=== PATIENT | male | born 1945 | race Caucasian/White ===

== ENCOUNTER → 2021-03-29 09:08 | Outpatient (BNVA) | payer MEDICARE, OTHER, SELFPAY | PROVIDERS: Family Provider Internal Medicine; PCP Internal Medicine; Visit Provider Nurse Practitioner Family | DX: R33.9 Retention of urine, unspecified (principal); N10 Acute pyelonephritis | CPT/HCPCS: 81000 ==

== ENCOUNTER → 2023-04-17 08:28 | Outpatient (BNVA) | payer MEDICARE, OTHER, SELFPAY | PROVIDERS: Family Provider Internal Medicine; PCP Internal Medicine; Visit Provider Nurse Practitioner Family | DX: L57.0 Actinic keratosis (principal); L21.8 Other seborrheic dermatitis; L85.3 Xerosis cutis; Z85.828 Personal history of other malignant neoplasm of skin; Z87.891 Personal history of nicotine dependence; Z85.820 Personal history of malignant melanoma of skin | CPT/HCPCS: 17000; 17003; 99213 ==

== ENCOUNTER 2023-05-24 04:11 | Emergency (ER) | payer MEDICARE, OTHER, SELFPAY ==
[2023-05-24] VITALS (15 sets, daily range): BP systolic 134–225; BP diastolic 97–143; PULSE 93–108; RESP 18–27; TEMP 36.6; O2SAT 87–97; BMI 35.5
--- NOTE | 2023-05-24 04:17 | XRR_ITS ---
PROCEDURE INFORMATION: Exam: XR Chest Exam date and time: 05/24/2023 4:36 AM Age: 78 years old Clinical indication: Other: CVA TECHNIQUE: Imaging protocol: Radiologic exam of the chest. Views: 1 view. COMPARISON: CT angio headneck* [id number] 05/24/2023 4:30 AM FINDINGS: Lungs: There is no consolidation. Nonspecific left infrahilar density. Pleural spaces: No pleural effusion or pneumothorax. Heart/Mediastinum: The heart and mediastinum are normal in size. There is a widened right paratracheal stripe. Bones/joints: Unremarkable. XR/XR chest 1V portable [id number] IMPRESSION: 1. Widened right paratracheal stripe as may be seen in paratracheal lymphadenopathy or mass CT angiogram of the chest with contrast may be helpful for further characterization if clinically indicated. 2. Left infrahilar nonspecific opacity that may represent atelectasis or pneumonia. Underlying neoplasm may present a similar picture.
--- NOTE | 2023-05-24 04:17 | CTR_ITS ---
PROCEDURE INFORMATION: Exam: CTA Head With Contrast, Arteriography Exam date and time: 05/24/2023 4:30 AM Age: 78 years old Clinical indication: Stroke-like symptoms; Lt upper extremity and lt lower extremity weakness; Additional info: CVA TECHNIQUE: Imaging protocol: Computed tomographic angiography of the head with contrast. Exam focused on the arteries. 3D rendering (Not supervised by radiologist): MIP and/or 3D reconstructed images were created by the technologist. Radiation optimization: All CT scans at this facility use at least one of these dose optimization techniques: automated exposure control; mA and/or kV adjustment per patient size (includes targeted exams where dose is matched to clinical indication); or iterative reconstruction. Contrast material: OMNI 350; Contrast volume: 100 ml; Contrast route: INTRAVENOUS (IV); REPORTING DATA: Count of CT and Cardiac NM exams in prior 12 months: This patient has received 0 known CTs and 0 known cardiac nuclear medicine studies in the 12 months prior to the current study. COMPARISON: CT head thrombolytic [id number] 05/24/2023 4:25 AM RADIATION DOSE METRICS: Total DLP (mGy-cm): 586.27 FINDINGS: ANTERIOR CIRCULATION: Right internal carotid artery: Intracranial segment is patent with no significant stenosis. No aneurysm. Right middle cerebral artery: No occlusion or significant stenosis. No aneurysm. Right anterior cerebral artery: No occlusion or significant stenosis. No aneurysm. Left internal carotid artery: Intracranial segment is patent with no significant stenosis. No aneurysm. Left middle cerebral artery: No occlusion or significant stenosis. No aneurysm. Left anterior cerebral artery: No occlusion or significant stenosis. No aneurysm. POSTERIOR CIRCULATION: Right vertebral artery: No occlusion or significant stenosis. No aneurysm. Left vertebral artery: No occlusion or significant stenosis. No aneurysm. Basilar artery: No occlusion or significant stenosis. No aneurysm. Right posterior cerebral artery: No occlusion or significant stenosis. No aneurysm. Left posterior cerebral artery: No occlusion or significant stenosis. No aneurysm. Brain: Ill-defined area of enhancement in the right frontoparietal convexity. Cerebral ventricles: No ventriculomegaly. Bones/joints: Unremarkable. No acute fracture. Soft tissues: Unremarkable. PROCEDURE INFORMATION: Exam: CTA Neck With Contrast Exam date and time: 05/24/2023 4:30 AM Age: 78 years old Clinical indication: Stroke-like symptoms; Lt upper extremity and lt lower extremity weakness; Additional info: CVA TECHNIQUE: Imaging protocol: Computed tomographic angiography of the neck with contrast. 3D rendering (Not supervised by radiologist): MIP and/or 3D reconstructed images were created by the technologist. Radiation optimization: All CT scans at this facility use at least one of these dose optimization techniques: automated exposure control; mA and/or kV adjustment per patient size (includes targeted exams where dose is matched to clinical indication); or iterative reconstruction. Contrast material: OMNI 350; Contrast volume: 100 ml; Contrast route: INTRAVENOUS (IV); REPORTING DATA: Count of CT and Cardiac NM exams in prior 12 months: This patient has received 0 known CTs and 0 known cardiac nuclear medicine studies in the 12 months prior to the current study. COMPARISON: CT head thrombolytic [id number] 05/24/2023 4:25 AM RADIATION DOSE METRICS: Total DLP (mGy-cm): 586.27 FINDINGS: Right common carotid artery: No significant stenosis. No dissection or occlusion. Right internal carotid artery: No significant stenosis of the extracranial segment. No dissection or occlusion. Right external carotid artery: No occlusion or significant stenosis of the origin. Left common carotid artery: No significant stenosis. No dissection or occlusion. Left internal carotid artery: No significant stenosis of the extracranial segment. No dissection or occlusion. Left external carotid artery: No occlusion or significant stenosis of the origin. Right vertebral artery: No significant stenosis. No dissection or occlusion. Left vertebral artery: No significant stenosis. No dissection or occlusion. Thyroid: 2.2 x 2.4 cm hypodense lesion in the right lobe of the thyroid. Lymph nodes: Right hilar and paratracheal mediastinal lymphadenopathy that may be infectious or neoplastic. Soft tissues: No significant soft tissue swelling. Bones/joints: No acute fracture. CT/CT angio headneck* [id number] IMPRESSION: 1. No large vessel stenosis or occlusion. 2. Ill-defined area of enhancement in the right frontoparietal convexity, possibly infiltrative neoplasm. AVM may be considered less likely. IMPRESSION: 1. Normal right and left extracranial internal carotid arteries by NASCET criteria. 2. Patent bilateral vertebral arteries. 3. Right hilar and paratracheal mediastinal lymphadenopathy that may be infectious or neoplastic. Consider correlation with CT scan of the chest, abdomen pelvis if clinically indicated. 4. 2.2 x 2.4 cm hypodense lesion in the right lobe of the thyroid. Dedicated thyroid ultrasound is recommended. THIS REPORT CONTAINS FINDINGS THAT MAY BE CRITICAL TO PATIENT CARE. The findings were verbally communicated via telephone conference with AMILCAR ANGULO at 5:38 AM CDT on 05/24/2023. The findings were acknowledged and understood. REFERENCES: NASCET CRITERIA. The degree of stenosis in the cervical segment of the internal carotid artery is based on NASCET criteria. Normal is no stenosis. Mild is less than 50% stenosis. Moderate is 50-69% stenosis. Severe is 70% to 99% stenosis. Total occlusion is no detectable patent lumen.
--- NOTE | 2023-05-24 04:17 | ECG_ITS ---
[facility] Test Date: 2023-05-24 Pat Name: Navid Camacho Department: Room: Gender: Male Senior Technical Support Engineer: : 1945 Requested By: Ange Pacheco Order Number: [id number] Reading MD: Measurements Intervals Henry Rate: 103 P: 62 MT: 181 QRS: -44 QRSD: 107 T: 35 QT: 373 QTc: 491 Interpretive Statements SINUS TACHYCARDIA LEFT AXIS DEVIATION [QRS AXIS < -30] No previous ECG available for comparison [email or web address]
--- NOTE | 2023-05-24 04:17 | CTR_ITS ---
PROCEDURE INFORMATION: Exam: CT Head Without Contrast Exam date and time: 05/24/2023 4:25 AM Age: 78 years old Clinical indication: Stroke-like symptoms; Lt upper extremity and lt lower extremity weakness; Additional info: Symptoms of acute stroke TECHNIQUE: Imaging protocol: Computed tomography of the head without contrast. Radiation optimization: All CT scans at this facility use at least one of these dose optimization techniques: automated exposure control; mA and/or kV adjustment per patient size (includes targeted exams where dose is matched to clinical indication); or iterative reconstruction. Other technique: STROKE PROTOCOL was implemented. REPORTING DATA: Count of CT and Cardiac NM exams in prior 12 months: This patient has received 0 known CTs and 0 known cardiac nuclear medicine studies in the 12 months prior to the current study. COMPARISON: No relevant prior studies available. RADIATION DOSE METRICS: Total DLP (mGy-cm): 1217.69 FINDINGS: Brain: There are moderate confluent periventricular hypodensities consistent with chronic microischemic changes of white matter. Cerebral ventricles: There is no mass effect on the ventricular system and no midline shift. Paranasal sinuses: There are no air-fluid levels. Mastoid air cells: The visualized mastoid air cells are well aerated. Bones/joints: No acute fracture. Soft tissues: Unremarkable. Vasculature: There is a hypervascular lesion in the right frontoparietal convexity with a very prominent draining vein. There is adjacent cortical atrophy. There is evidence of prior and acute or subacute hemorrhage. Petechial hemorrhages are present in the poorly defined area of the frontal cortex and subcortical region measuring 3.9 x 2 x 3.6 cm (volume 14 mL). CT/CT head thrombolytic [id number] IMPRESSION: 1. 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 MRI may be helpful for further characterization. 2. The differential diagnosis includes an arteriovenous malformation. 3. Moderate cerebral small-vessel disease. 4. Age-related involutional changes of the brain. ASSESSMENT: ASPECTS ([place] Stroke Program Early CT Score) likely does not apply.
--- NOTE | 2023-05-24 04:18 | W.ED.NEUROSD ---
HPI - Neuro Symptoms/Deficit General: Chief Complaint: Neuro Symptoms/Deficit Stated Complaint: stroke symptoms Time Seen by Provider: 05/24/23 04:13 Source: patient Mode of arrival: ambulatory Limitations: no limitations History of Present Illness: 78-year-old male states he went to bed last night at 9 PM. He states he woke up with this morning at 3 AM and is having left-sided weakness. States he had some numbness in his left arm and left leg is having weakness on that side as well. 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 is having a difficult time lifting it he has no slurred speech denies any visual field deficits or blurred vision Associated symptoms: Reports headache(s); Deny chest pain, nausea or vomiting Review of Systems Const: Denies: fever(s) or chills Eyes: Denies: eye discomfort ENMT: Denies: throat pain or dental pain Card: Denies: chest pain Resp: Denies: dyspnea GI: Denies: abdominal pain, nausea, vomiting or diarrhea : Denies: dysuria Musc: Denies: neck pain or back pain Skin/Breast: Denies: rash Neuro: Reports: headache(s), numbness in extremities and weakness in extremities PFSH ED PFSH: Medical History History of malignant melanoma History of nonmelanoma skin cancer HTN (hypertension) Surgical History H/O eye surgery History of appendectomy History of colon surgery History of hip surgery Family History Father Cancer Sister Cancer Social History Smoking and tobacco status: never smoked Alcohol intake: former service: Yes NIH stroke score NIHSS: Level Of Consciousness - 1a: 0 Level Of Consciousness Questions - 1b: Both Correct Level Of Consciousness Commands - 1c: Both Correct Best Gaze - 2: Normal Visual Ramos - 3: No Visual Loss Facial Palsy - 4: Normal Motor Arm Right - 5: No Drift Motor Arm Left - 5: Drift Motor Leg Right - 6: No Drift Motor Leg Left - 6: Drift Limb Ataxia - 7: Absent Sensory - 8: Mild To Moderate Loss Best Language - 9: No Aphasia Dysarthia - 10: Normal Extinction And Inattention - 11: 0 Score: Total Score: 3 Physical Exam Const: COMMON NORMALS: no acute distress, patient oriented x3 and healthy appearing HENMT: COMMON NORMALS: normocephalic and atraumatic HEAD & SCALP: normocephalic and atraumatic Eye: COMMON NORMALS: conjunctivae normal CONJUNCTIVA: Yes conjunctivae normal Neck/C-Spine: COMMON NORMALS: full ROM and supple Chest: COMMONS NORMALS: normal inspection of the chest and normal palpation of entire chest wall Resp: COMMON NORMALS: normal respiratory effort, No retractions, No use of accessory muscles and clear to auscultation bilaterally AUSCULTATION: clear to auscultation bilaterally Cardio: COMMON NORMALS: regular rate, regular rhythm and No murmurs present (Cardio) RATE: regular rate RHYTHM: regular rhythm GI: COMMON NORMALS: Normal to inspection, nondistended, normoactive bowel sounds present, Soft to palpation, non-tender and no masses PALPATION: Yes Soft to palpation Extremity: COMMON NORMALS: normal to inspection and full ROM Neuro: COMMON NORMALS: patient oriented x3, moves all extremities and no focal motor deficits CRANIAL NERVES: Yes CN normal except as noted SPEECH: speech normal OTHER: Left-sided weakness Psych: COMMON NORMALS: mental status grossly normal, Normal thought process present and cooperative THOUGHT PROCESS: Normal thought process present Skin: COMMON NORMALS: no rashes or lesions noted and no wounds GENERAL SKIN EXAM: no rashes or lesions noted Course Vital Signs: Vital signs: Vital Signs Temperature 97.9 F 05/24/23 04:18 Pulse Rate 108 H 05/24/23 04:18 Respiratory Rate 22 H 05/24/23 04:18 Blood Pressure 225/143 05/24/23 04:24 Pulse Oximetry 97 05/24/23 04:18 Oxygen Delivery Me thod Room Air 05/24/23 04:18 MDM - Neuro Symptoms/Deficit Medical Decision Making Patient presents here with left-sided weakness he did have a seizure here roughly 30 minutes into his stay that resolved after Ativan and Keppra he was not very hypertensive his blood pressure now is 147/99 stroke alert was called patient was seen by the neurologist down here Dr. Villarreal. Me and the neurologist had reviewed the CT scan and it took a prolonged time for [facility] to read it over 50 minutes. Neurologist looking at the CT we do not see any the small hemorrhage on the CT patient was not a tPA candidate due to his time of onset so the decision was made to give aspirin. CT read did come back with a neoplasm with small area of intermittent hemorrhage is acute on chronic. Patient has been stable here and has not had another seizure I did speak to [facility] will transfer there for higher level of care of neurosurgery. Medical Records I reviewed the patient's medical records. Lab Data I reviewed the patient's lab results. 05/24/23 04:20 05/24/23 04:20 Radiology Impressions Chest X-Ray 05/24/23 04:17 IMPRESSION: 1. Widened right paratracheal stripe as may be seen in paratracheal lymphadenopathy or mass CT angiogram of the chest with contrast may be helpful for further characterization if clinically indicated. 2. Left infrahilar nonspecific opacity that may represent atelectasis or pneumonia. Underlying neoplasm may present a similar picture. Head CT 05/24/23 04:17 IMPRESSION: 1. 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 MRI may be helpful for further characterization. 2. The differential diagnosis includes an arteriovenous malformation. 3. Moderate cerebral small-vessel disease. 4. Age-related involutional changes of the brain. ASSESSMENT: ASPECTS ([place] Stroke Program Early CT Score) likely does not apply. ADDENDUM: 05/24/23 0541 THIS REPORT CONTAINS FINDINGS THAT MAY BE CRITICAL TO PATIENT CARE. The findings were verbally communicated via telephone conference with AMILCAR ANGULO at 5:37AM CDT on 05/24/2023. The findings were acknowledged and understood. ADDENDUM: 05/24/23 0550 Underlying areas of ischemia/subacute or chronic infarction may be present in the right frontoparietal convexity. Head/Neck CTA 05/24/23 04:17 IMPRESSION: 1. No large vessel stenosis or occlusion. 2. Ill-defined area of enhancement in the right frontoparietal convexity, possibly infiltrative neoplasm. AVM may be considered less likely. IMPRESSION: 1. Normal right and left extracranial internal carotid arteries by NASCET criteria. 2. Patent bilateral vertebral arteries. 3. Right hilar and paratracheal mediastinal lymphadenopathy that may be infectious or neoplastic. Consider correlation with CT scan of the chest, abdomen pelvis if clinically indicated. 4. 2.2 x 2.4 cm hypodense lesion in the right lobe of the thyroid. Dedicated thyroid ultrasound is recommended. THIS REPORT CONTAINS FINDINGS THAT MAY BE CRITICAL TO PATIENT CARE. The findings were verbally communicated via telephone conference with AMILCAR ANGULO at 5:38 AM CDT on 05/24/2023. The findings were acknowledged and understood. REFERENCES: NASCET CRITERIA. The degree of stenosis in the cervical segment of the internal carotid artery is based on NASCET criteria. Normal is no stenosis. Mild is less than 50% stenosis. Moderate is 50-69% stenosis. Severe is 70% to 99% stenosis. Total occlusion is no detectable patent lumen. Laboratory Results WBC 10.2 10^3/uL (4.0-10.0) H 05/24/23 04:20 RBC 5.00 10^6/uL (4.1-5.3) 05/24/23 04:20 Hgb 15.5 g/dL (11.7-16.6) 05/24/23 04:20 Hct 45.3 % (42.0-52.0) 05/24/23 04:20 MCV 90.6 fl (80-94) 05/24/23 04:20 MCH 31.0 pg (28.0-34.0) 05/24/23 04:20 MCHC 34.2 g/dL (30.0-36.0) 05/24/23 04:20 RDW 13.6 % (12.1-15.1) 05/24/23 04:20 Plt Count 264 10^3/cmm (130-400) 05/24/23 04:20 MPV 8.8 fL (7.4-10.4) 05/24/23 04:20 Neut % (Auto) 57.6 % 05/24/23 04:20 Lymph % (Auto) 26.8 % 05/24/23 04:20 [place] % (Auto) 11.9 % 05/24/23 04:20 Eos % (Auto) 2.6 % 05/24/23 04:20 Baso % (Auto) 0.6 % 05/24/23 04:20 Neut # (Auto) 5.87 10^3/uL (1.8-7.7) 05/24/23 04:20 Lymph # (Auto) 2.7 10^3/uL (0.8-4.8) 05/24/23 04:20 Baxter # (Auto) 1.2 10^3/uL (0.2-0.9) H 05/24/23 04:20 Eos # (Auto) 0.3 10^3/uL (0.0-0.8) 05/24/23 04:20 Baso # (Auto) 0.1 10^3/uL (0.0-0.1) 05/24/23 04:20 Nucleated RBC % (auto) 0 % 05/24/23 04:20 Nucleated RBCs # 0.0 /100WBC 05/24/23 04:20 PT 12.80 SECONDS (12.1-14.9) 05/24/23 04:20 INR 0.94 (0.8-1.2) 05/24/23 04:20 APTT 31.4 SECONDS (23.9-36.7) 05/24/23 04:20 Sodium 140 mmol/L (136-145) 05/24/23 04:20 Potassium 3.3 mmol/L (3.5-5.1) L 05/24/23 04:20 Chloride 103 mmol/L (98-107) 05/24/23 04:20 Carbon Dioxide 27 mmol/L (22-29) 05/24/23 04:20 Anion Gap 13.3 (5-19) 05/24/23 04:20 BUN 11 mg/dL (8-23) 05/24/23 04:20 Creatinine 1.0 mg/dL (0.7-1.2) 05/24/23 04:20 GFR Calculation Not Reportable 05/24/23 04:20 Glucose 115 mg/dL (65-115) 05/24/23 04:20 POC Glucose 128 mg/dL (70-110) H 05/24/23 04:30 Calculated Osmolality 290 mOsm/kg (285-295) 05/24/23 04:20 Calcium 9.2 mg/dL (8.5-10.5) 05/24/23 04:20 Total Bilirubin 0.6 mg/dL (0.15-1.2) 05/24/23 04:20 AST 25 U/L (0-40) 05/24/23 04:20 ALT 18 U/L (0-41) 05/24/23 04:20 Alkaline Phosphatase 194 U/L (40-130) H 05/24/23 04:20 Total Protein 7.9 g/dL (6.6-8.7) 05/24/23 04:20 Albumin 4.2 g/dL (3.5-5.2) 05/24/23 04:20 Globulin 3.7 g/dL (1.3-4.6) 05/24/23 04:20 Urine Color Colorless (Yellow) 05/24/23 04:52 Urine Appearance Clear (CLEAR) 05/24/23 04:52 Urine pH 7 (5-7) 05/24/23 04:52 Ur Specific [place] 1.010 (1.005-1.030) 05/24/23 04:52 Urine Protein Neg (Negative) 05/24/23 04:52 Urine Glucose (UA) Norm (Normal) 05/24/23 04:52 Urine Ketones Negative (Negative) 05/24/23 04:52 Urine Blood Neg (Negative) 05/24/23 04:52 Urine Nitrate Negative (Negative) 05/24/23 04:52 Urine Bilirubin Neg (Negative) 05/24/23 04:52 Urine Urobilinogen Neg mg/dL (Negative) 05/24/23 04:52 Ur Leukocyte Esterase Negative (Negative) 05/24/23 04:52 Urine Opiates Screen Negative ng/mL (Negative) 05/24/23 04:52 Ur Barbiturates Screen Negative ng/mL (Negative) 05/24/23 04:52 Ur Phencyclidine Scrn Negative ng/mL (Negative) 05/24/23 04:52 Ur Amphetamines Screen Negative ng/mL (Negative) 05/24/23 04:52 U Benzodiazepines Scrn Negative ng/mL (Negative) 05/24/23 04:52 Urine Cocaine Screen Negative ng/mL (Negative) 05/24/23 04:52 U Marijuana (THC) Screen Negative ng/mL (Negative) 05/24/23 04:52 EKG Data EKG 1: I personally reviewed and interpreted this EKG as follows: EKG interpretation date: 05/24/23 EKG interpretation time: 04:42 Interpretation: sinus tach hr [address] or t wave abnormalities qrs 107 qtc 433 Critical Care Time Critical Care Time: Critical Care Time: Yes Total Critical Care Time: 50 Attestation: The high probability of a clinically significant, sudden or life threatening deterioration of the patient's neuro system(s) required my full and direct attention, intervention and personal management. The critical care time is as shown. This time is in addition to time spent performing any reported procedures but includes the following: [x] Data and vital sign review and interpretation [x] Patient assessment, examination and intervention [x] Documentation [x] Medication orders and management Discharge Plan Discharge Patient Disposition: Xfer Short-Term Hosp Clinical Impression: Neoplasm, Cerebral hemorrhage Condition: Stable Referrals: Remi Stroud MD [Primary Care Provider] - Coding Level of Care Code ED Anesthesiology Resident for Kesha Barton
[2023-05-24 04:26] LABS: Basophils # 0.1 10^3/uL (0.0-0.1); Basophils % 0.6 %; Eosinophils # 0.3 10^3/uL (0.0-0.8); Eosinophils % 2.6 %; Hematocrit 45.3 % (42.0-52.0); Hemoglobin 15.5 g/dL (11.7-16.6); Lymphocytes # 2.7 10^3/uL (0.8-4.8); Lymphocytes % 26.8 %; Mean Corpuscular HGB Conc 34.2 g/dL (30.0-36.0); Mean Corpuscular Volume 90.6 fl (80-94); Mean Platelet Volume 8.8 fL (7.4-10.4); Monocytes # 1.2 10^3/uL (0.2-0.9); Monocytes % 11.9 %; Neutrophils # 5.87 10^3/uL (1.8-7.7); Neutrophils % 57.6 %; Nucleated Red Blood Cells % 0 %; Platelet Count 264 10^3/cmm (130-400); Red Cell Distribution Width 13.6 % (12.1-15.1); White Blood Count 10.2 10^3/uL (4.0-10.0)
[2023-05-24] MEDS: iohexol 350 mg/mL 500 mL Btl (per mL) IV (04:26)
[2023-05-24 04:34] LABS: Glucose Point of Care 128 mg/dL (70-110)
[2023-05-24 04:40] LABS: INR 0.94 (0.8-1.2)
[2023-05-24 04:41] LABS: Partial Thromboplastin Time 31.4 SECONDS (23.9-36.7)
[2023-05-24 04:44] LABS: Alanine Aminotransferase 18 U/L (0-41); Albumin Level 4.2 g/dL (3.5-5.2); Alkaline Phosphatase 194 U/L (40-130); Anion Gap 13.3 (5-19); Aspartate Amino Transferase 25 U/L (0-40); Blood Urea Nitrogen 11 mg/dL (8-23); Calcium 9.2 mg/dL (8.5-10.5); Carbon Dioxide 27 mmol/L (22-29); Chloride 103 mmol/L (98-107); Globulin 3.7 g/dL (1.3-4.6); Glucose 115 mg/dL (65-115); Osmolality Calculated 290 mOsm/kg (285-295); Potassium 3.3 mmol/L (3.5-5.1); Sodium 140 mmol/L (136-145); Total Bilirubin 0.6 mg/dL (0.15-1.2); Total Protein 7.9 g/dL (6.6-8.7)
[2023-05-24] MEDS: LORazepam 2 mg/mL INJ 1 mL 1 MG IVP (05:07)
--- NOTE | 2023-05-24 05:09 | PC.NURSE ---
Dr Villarreal to bedside. Pt began to have a seizure. Verbal order to pull 4 mg of Ativan from by Dr. Pacheco. Administered 1 mg of Ativan per MD orders.
[2023-05-24 05:13] LABS: Add Urine Microscopic? NO; Charge for UA Resulting for Rev
[2023-05-24 05:24] LABS: Amphetamines Screen Urine Negative (Negative); Barbiturates Screen Urine Negative (Negative); Benzodiazepines Screen Urine Negative (Negative); Cocaine Screen Urine Negative (Negative); Opiate Screen Urine Negative (Negative); PCP Screen Urine Negative (Negative); THC Screen Urine Negative (Negative)
[2023-05-24 05:34] LABS: Bilirubin Urine Neg (Negative); Blood Urine Neg (Negative); Glucose Urine UA Norm (Normal); Ketones Urine Negative (Negative); Leukocyte Esterase Urine Negative (Negative); Nitrate Urine Negative (Negative); Protein Urine Neg (Negative); Urine Appearance Clear (CLEAR); Urine Color Colorless (Yellow); Urobilinogen Urine Neg (Negative); pH Urine 7 (5-7)
[2023-05-24] MEDS: aspirin 300 mg Supp PR (05:38)
--- NOTE | 2023-05-24 05:56 | PM.CONSULT ---
Providers/Reason For Consult Consulting Physician/Specialty*: Champ Villarreal MD Neurology and Epilepsy Reason for Consult*: Code stroke emergency department room 5 Primary Care Provider: Remi Stroud MD History of Present Illness History of Present Illness Navid Camacho is a 78 year old male with a past medical history of stage III colon cancer diagnosed 15 years ago, melanoma of the face status post surgery 2 years ago, hypertension and bilateral hip surgery. According to the patient he was prescribed medication for hypertension but his doctor was no longer in practice and once he ran out of his medication he stopped taking his antihypertensive medications. The patient was on lisinopril, metoprolol and Dyazide for hypertension. According to the family who was present during this neurological assessment, at approximately 9 PM on 05/23/2023 the patient went to bed and woke up at 3 AM on 05/24/2023 complaining of left-sided numbness involving his left arm and left leg. The patient reported that it felt like his arm and leg were asleep. According to the family, the patient did not seem like himself on the day of 05/23/2023. The patient was reported to be at work and complained of severe neck pain with difficulty turning his neck and he was reported to be holding the left arm in a flexed position. The patient was brought to [facility] emergency department. Since the patient's last known well was 9 PM on 05/23/2023, and the code stroke was initiated at 4:18 AM on 05/24/2023, the patient was not a candidate for tPA and no tPA was administered. NIH score = 3 in the emergency room at presentation. During my neurological assessment the patient blood pressure was significantly elevated at 225/143. The patient was witnessed by me to experience a seizure manifested as the patient displaying deviation of his head and eyes to the left with the patient screaming out saying, My left leg is cramping associated with tonic extension of his left arm and left leg followed by redness of his face and generalized tonic-clonic activity of his entire body for approximately 60 seconds followed by postevent altered awareness, drooling and heavy breathing for several minute followed by Greg's paralysis involving the left arm and left leg and right gaze preference up on the patient regaining consciousness. Clinically the event was suggestive of a right frontal lobe seizure involving the supplementary motor area. During the seizure patient was prescribed Ativan 1 mg IV. Patient was also loaded with 1 g of IV Keppra. Noncontrast head CT revealed a questionable lesion in the right hemisphere of unclear etiology when reviewed by myself and the ER physician on duty and the possibility of of large vessel occlusion could not be totally ruled out. Official radiology interpretation was not obtained until greater than 50 minutes after the imaging studies were performed. Therefore the decision was made to transfer the patient to [facility]. This was relayed to the family who was at the patient's bedside. Following the official radiology interpretation the head CT was reported to be suggestive of a metastatic right frontal lobe tumor with questionable hemorrhage. CT angiogram was reported to be unrevealing. The results of the reported head CT findings were discussed with the family. The family then informed me that the patient had a history of colon cancer stage III approximately 15 years ago as well as melanoma involving his face approximately 2 years ago requiring surgery and reconstruction of his nose. The patient's also informed me that the patient has 2 sisters 1 who of cancer and another sister with terminal cancer. Repeat NIH score =[address] scan 05/24/2023: There is a hypervascular lesion in the right frontoparietal convexity with a very prominent draining vein. There is adjacent cortical atrophy. There is evidence of prior and acute or subacute hemorrhage. Petechial hemorrhages are present in the poorly defined area of the frontal cortex and subcortical region measuring 3.9 x 2 x 3.6 cm (volume 14 mL). Past medical history: Hypertension Colon cancer stage III approximately 15 years ago Melanoma of the face status post surgery approxi-2 years ago with facial/nose reconstruction Bilateral hip surgery Drug allergies: Penicillin which resulted in hives Current Home medications: None Past home medications: Lisinopril 20 mg p.o. every morning, metoprolol 25 mg p.o. daily, Dyazide 37.5/25 mg p.o. daily Habits: None Family history: Remarkable for a father with hypertension, a mother who of a myocardial infarction, 1 sister secondary to cancer and another sister with terminal cancer Review of Systems General: Reports: 10 or more systems reviewed and unremarkable except in HPI and below Skin/Breast: Reports: other (History of melanoma skin cancer) Neuro: Reports: numbness in extremities, weakness in extremities, seizure-like activity and other (Right brain stroke symptoms) Medications/Allergies Allergies Allergy/AdvReac Type Severity Reaction Status Date / Time penicillin G Allergy Hives Verified 05/24/23 04:22 PFSH Acute PFSH: Medical History History of malignant melanoma History of nonmelanoma skin cancer HTN (hypertension) Surgical History H/O eye surgery History of appendectomy History of colon surgery History of hip surgery Family History Father Cancer Sister Cancer Social History Smoking and tobacco status: never smoked Alcohol intake: former service: Yes Vitals/I&O/Wt Last Vital Signs Temp 97.9 F 05/24/23 04:18 Pulse 108 H 05/24/23 04:18 Resp 22 H 05/24/23 04:18 BP 225/143 05/24/23 04:24 Pulse Ox 97 05/24/23 04:18 O2 Del Method Room Air 05/24/23 04:18 Weight last 48 hrs Weight 220 lb Physical Exam Narrative: NIH score =11 approximately 15 to 20 minutes following the seizure (on initial presentation to the emergency room NIH score =3) Blood pressure 225/143, repeat blood pressure 194/119 with a heart rate of 95 O2 saturation 100% on room air The patient was alert prior to and several minutes after the seizure. Head reveals signs of facial surgery secondary to history of melanoma surgery. Pupils 3 to 4 mm. Pupils equal round and reactive to light and accommodation. Patient displayed a right gaze preference although he could look to the left slightly past midline. Patient displayed neglect on the left side of his body. Cranial nerves II through XII revealed left lower facial weakness. Other cranial nerves appear to be intact. Motor testing revealed left upper and left lower extremity paralysis. Deep tendon reflexes grossly symmetrical at 2+. Plantar responses flexor bilaterally. There was no clonus. Sensory examination revealed decreased sensation in the left forearm and left leg. Throat clear. Lungs clear. Heart regular rhythm and rate extremities were negative for clubbing or cyanosis. Data 05/24/23 04:20 05/24/23 04:20 A&P Assessment and plan (1) Neoplasm: Assessment: 1. Right frontal lobe infarction, note: Patient was not a candidate for tPA secondary to patient presenting outside of the tPA window and finding of right frontal lobe neoplasm with hemorrhage on noncontrast head CT scan 2. Right frontal lobe neoplasm with hemorrhage 3. Right frontal lobe seizure clinically involving the right supplementary motor region 4. Left arm and left leg paralysis with right gaze preference, cannot exclude Greg's paralysis following the frontal lobe seizure versus secondary to stroke/neoplasm 5. Malignant hypertension 6. History of colon cancer stage III approximately 15 years ago 7. History of melanoma requiring nasal/facial reconstruction 2 years ago Plan: 1. Ativan 1 mg IV given for seizure in the emergency room 2. Keppra 1 g IV load given for seizure in the emergency room 3. Patient will be transferred to [facility] for further evaluation (2) Stroke determined by clinical assessment: (3) Cerebral hemorrhage: (4) History of malignant melanoma: (5) Seizure: Consult Attestations Medical Necessity Statement: Patient evaluated by neurology for code stroke and metastatic right frontal lobe lesion requiring transfer to [facility] Critical Care Time: I spent 70 minutes [id number] with this patient addressing the code stroke, new onset seizures, metastatic right frontal brain lesion requiring transfer to [facility] Coding Level of Care Code 25528 Diagnoses Neoplasm D49.9 Stroke determined by clinical assessment I63.9 Cerebral hemorrhage I61.9 History of malignant melanoma Z85.820 Seizure R56.9 Time Spent (min) 70
== END 2023-05-24 06:32 | disposition short-term general hospital (02) ==
PROVIDERS: Emergency Provider Emergency Medicine; PCP Internal Medicine
DX: I61.9 Nontraumatic intracerebral hemorrhage, unspecified (principal); D49.89 Neoplasm of unspecified behavior of other specified sites; Z85.820 Personal history of malignant melanoma of skin; I10 Essential (primary) hypertension
CPT/HCPCS: 36416; 70450; 70496; 70498; 71045; 80053; 80306; 81003; 82962; 85025; 85610; 85730; 93005; 96374; 96375; 99285; J1953; J2060; Q9967